=== PATIENT | female | born 1985 | race Caucasian/White ===

== ENCOUNTER 2017-04-21 18:29 | Emergency (ER) | payer MEDICAID ==
--- NOTE | 2017-04-21 18:58 | EDPHY ---
H & P Stated Complaint: SI;no plan;superficial cuts both arms,hx cutting Source: Patient Exam Limitations: No limitations - Personal History LMP (Females 10-55): 1-7 Days Ago Current Tetanus Diphtheria and Acellular Pertussis (TDAP): Yes Tetanus Vaccine Date: 4 yrs ago - Medical/Surgical History Hx Asthma: No Hx Chronic Respiratory Disease: No Hx Diabetes: No Hx Cardiac Disease: No Hx Renal Disease: No Hx Cirrhosis: No Hx Alcoholism: No Hx HIV/AIDS: No Hx Splenectomy or Spleen Trauma: No Other PMH: Medical- Bipolar 1,. Surgical- hernia repair as baby, - Social History Smoking Status: Current every day smoker Time Seen by Provider: 04/21/17 18:56 HPI/ROS: HPI: This is a 31-year-old female who presents with Chief Complaint: SI;no plan;superficial cuts both arms,hx cutting Location:psych Quality: Suicidal ideation Duration: 1 week Signs and Symptoms: no auditory and visual command hallucinations, + suicidal ideation with a plan, no homicidal ideation, paranoid Timing: Worsening Severity: Severe Context: History of bipolar 1 disorder taking Zyprexa, Paxil, Restoril, history of cutting and self-harm but no episodes in greater than 2 years presents with recent loss of job and coworkers accusing her of stealing money. This has caused her to have anger, feelings of guilt and low self worth. She reports today she confronted her coworkers which escalated and ended in argument. She went home and started to cut herself on her face neck arms and legs with a razor blade. She wanted to caused herself self-harm because she deserves it. She does not want to live anymore. She admits to suicidal thoughts. LMP 1-7 days ago. She called her friend that she is worried about her safety and does not feel comfortable to be alone. Her friend is accompanying her today and reports that he is gravely worried about her. He has not seen her this low in long time. Tetanus booster unknown. Patient reports periods of david vu this week. Modifying Factors: Called a friend Comment: ROS: see HPI Constitutional: No fever, no chills, no weight loss Eyes: No blurred vision Respiratory: No shortness of breath, no cough Cardiovascular: No chest pain Gastrointestinal: No nausea, no vomiting, no diarrhea Genitourinary: No dysuria Extremities: No myalgias Neurologic: No weakness, no numbness Skin: No rashes Hematologic: No bruising, no bleeding MEDICAL/SURGICAL/SOCIAL HISTORY: Medical- Bipolar 1 Surgical- hernia repair as baby Social history: Formally employed. CONSTITUTIONAL: Polite, tidy, adult white female, awake and alert, no obvious distress HEENT: Atraumatic and normocephalic, PERRL, EOMI. Tympanic membranes clear. Oropharynx clear, no exudate and moist pink mucosa. Airway patent. No lymphadenopathy. No meningismus. Cardiovascular: Normal S1/S2, regular rate, regular rhythm, without murmur rub or gallop. PULMONARY/CHEST: Symmetrical and nontender. Clear to auscultation bilaterally. Good air movement. No accessory muscle usage. ABDOMEN: Soft, nondistended, nontender, no rebound, no guarding, no peritoneal signs, no masses or organomegaly. No CVAT. EXTREMITIES: 2/2 pulses, strength 5/5, no deformities, no clubbing, no cyanosis or edema. NEUROLOGICAL: no focal neuro deficits. GCS 15. SKIN: Warm and dry, no erythema. no rash. Good capillary refill. Multiple piercings and tattoos noted. PSYCH: Poor eye contact, no flight of ideas, organized thought process, good insight and judgment, no auditory and visual command hallucinations, + suicidal ideation with a plan, no homicidal ideation, paranoid ([place]) Constitutional: Initial Vital Signs Temperature (C) 36.7 C 04/21/17 18:40 Heart Rate 94 04/21/17 18:40 Respiratory Rate 16 04/21/17 18:40 Blood Pressure 113/77 04/21/17 18:40 O2 Sat (%) 97 04/21/17 18:40 O2 Delivery Mode Room Air Allergies/Adverse Reactions: haloperidol [Haloperidol] Allergy (Mild, Verified 04/21/17 18:39) Rash lorazepam [Lorazepam] Allergy (Mild, Verified 04/21/17 18:39) Rash lurasidone HCl [From Latuda] Allergy (Verified 04/21/17 18:39) Home Medications: Medication Instructions Recorded OLANZapine [Zyprexa] 15 mg PO HS 12/19/15 PARoxetine HCL [Paxil 10mg (*)] 15 mg PO HS 12/19/15 Temazepam [Restoril 15 MG (*)] 15 mg PO 04/21/17 Medical Decision Making ED Course/Re-evaluation: Placed on M1 thomas upon arrival. Patient is calm and cooperative and not requiring interventions at this time. Labs and UDS ordered. Patient would benefit from inpatient psychiatric treatment. Tetanus booster given. Wounds washed with mild soap and water and bacitracin applied. 2039: Reviewed labs and UDS; positive for benzodiazepine; medically clear for mental health evaluation Midnight: End of shift. Signed out to Dr. Garrett pending mental health evaluation and final disposition. This patient was seen under the supervision of my secondary supervising physician. I evaluated care for this patient independently. Patient's presentation, labs/imaging, treatment and plan of care were discussed with secondary supervising physician. (Dominique Tuttle) 12:30 a.m.- The patient was evaluated by the mental health worker. She does have a history of bipolar 1 with psychotic features and has been hospitalized previously for suicidal ideation. Now, the patient has no active plan for suicide and is able to contract for safety. She is here with her roommate and friend who can help locking up any sharp razors or knives and her psych medications. The patient does not feel ready to discharge home and it seems crisis stabilization unit may be better option for her. The mental health team will begin to look for placement for her at a CSU. 6:50 a.m.- The patient remained stable throughout my shift, sleeping for most of it, she continues to await placement. The case will be signed out to the oncoming provider Dr. Marquez. (Aura Garrett) 7am: I assumed care at shift change. h/o bipolar disorder with psychotic features, on M1 hold for SI and cutting behavior. Awaiting placement in CSU. Sleeping comfortably. Accepted to a CSU. EMTALA completed. (Idalia Marquez) Differential Diagnosis: Differential diagnosis includes but is not limited to situational functional depression, worsening severe depression with psychosis, suicidal ideation, self- harm. (Dominique Tuttle) - Data Points Laboratory Results: Laboratory Results 04/21/17 19:50 04/21/17 19:50 Medications Given: Discontinued Medications Diphtheria/Tetanus/Acell Pertussis (Boostrix) 0.5 ml IM .ONCE ONE Stop: 04/21/17 20:28 Last Admin: 12/04/17 21:17 Dose: 0.5 ml Olanzapine (Zyprexa Zydis) 20 mg PO EDNOW ONE Stop: 04/22/17 00:49 Last Admin: 04/22/17 01:04 Dose: 20 mg Paroxetine HCl (Paxil) 15 mg PO EDNOW ONE Stop: 04/22/17 00:58 Last Admin: 04/22/17 01:26 Dose: 15 mg Temazepam (Restoril) 15 mg PO EDNOW ONE Stop: 04/22/17 00:49 Last Admin: 04/22/17 01:04 Dose: 15 mg Departure - Departure Disposition: Other Psych, Not [place] Clinical Impression: Abrasion, multiple sites, Bipolar 1 disorder with moderate sergei, Deliberate self-cutting Referrals: NONE *PRIMARY CARE P,. [Primary Care Provider] - As per Instructions
[2017-04-21 20:02] LABS: ANION GAP 16 mEq/L (8-16); CALCIUM 9.8 mg/dL (8.5-10.4); CARBON DIOXIDE 15 mEq/l (22-31); CHLORIDE 111 mEq/L (97-110); CREATININE 0.7 mg/dL (0.6-1.0); ETHANOL SERUM < 10 mg/dL (0-10); GLOMERULAR FILTRATION RATE > 60; GLUCOSE 94 mg/dL (70-100); SODIUM 142 mEq/L (134-144)
[2017-04-21 20:10] LABS: % IMMATURE GRANULYOCYTES 0.4 % (0.0-1.1); ABSOLUTE IMMATURE GRANULOCYTES 0.06 10^3/uL (0.00-0.10); ADD DIFF? NO; ADD MORPH? NO; ADD SCAN? NO; ATYPICAL LYMPHOCYTE FLAG 0 (0-99); FRAGMENT RBC FLAG 0 (0-99); HEMATOCRIT 43.6 % (38.0-47.0); HEMOGLOBIN 14.7 g/dL (12.6-16.3); LEFT SHIFT FLG 0 (0-99); LIPEMIA HEMOLYSIS FLAG 80 (0-99); MEAN CELL HEMOGLOBIN 29.3 pg (27.9-34.1); MEAN CELL HEMOGLOBIN CONCENTR. 33.7 g/dL (32.4-36.7); MEAN PLATELET VOLUME 9.5 fL (8.7-11.7); PLATELET CLUMPS FLAG 0 (0-99); PLATELET COUNT 295 10^3/uL (150-400); RED BLOOD CELL COUNT 5.01 10^6/uL (4.18-5.33); RED CELL DISTRIBUTION WIDTH 12.8 % (11.5-15.2)
[2017-04-21] MEDS ORDERED: TDAP ADULT 0.5 ML INJ (BOOSTRIX) IM ONE (20:27)
[2017-04-21 21:08] LABS: ANION GAP 12 mEq/L (8-16); CALCIUM 9.7 mg/dL (8.5-10.4); CARBON DIOXIDE 20 mEq/l (22-31); CHLORIDE 106 mEq/L (97-110); CREATININE 0.7 mg/dL (0.6-1.0); ETHANOL SERUM < 10 mg/dL (0-10); GLOMERULAR FILTRATION RATE > 60; GLUCOSE 90 mg/dL (70-100); POTASSIUM 3.8 mEq/L (3.5-5.2); SODIUM 138 mEq/L (134-144)
[2017-04-22] MEDS ORDERED: TEMAZEPAM 15 MG CAP PO ONE (00:48)
[2017-04-22] MEDS ORDERED: OLANZapine DISINTEGR 10 MG TAB PO ONE (00:48)
[2017-04-22] MEDS ORDERED: PARoxetine HCL 10 MG TAB PO ONE (00:57)
[2017-04-22 07:34] LABS: COLOR YELLOW; LEUKOCYTE ESTERASE,URINE NEGATIVE (NEGATIVE); NITRITE,URINE NEGATIVE (NEGATIVE)
[2017-04-22 08:45] VITALS: RESP 18; TEMP 97.9
[2017-04-22] MEDS ORDERED: PARoxetine HCL 10 MG TAB PO SCH (09:00)
[2017-04-22 10:45] VITALS: BP 115/62; PULSE 82; O2SAT 95
== END 2017-04-22 10:45 ==
DX: T14.8XXA Other injury of unspecified body region, initial encounter (principal); F31.12 Bipolar disorder, current episode manic without psychotic features, moderate; F17.200 Nicotine dependence, unspecified, uncomplicated; Z91.5 Personal history of self-harm; Z23 Encounter for immunization; W45.8XXA Other foreign body or object entering through skin, initial encounter
CPT/HCPCS: 80305; G0480

== ENCOUNTER 2018-01-22 22:03 | Emergency (ER) | payer MEDICAID ==
[2018-01-22 22:19] LABS: PLATELET COUNT 306 10^3/uL (150-400)
--- NOTE | 2018-01-22 22:33 | EDPHY ---
H & P - Personal History Tetanus Vaccine Date: 4 yrs ago - Medical/Surgical History Hx Asthma: No Hx Chronic Respiratory Disease: No Hx Diabetes: No Hx Cardiac Disease: No Hx Renal Disease: No Hx Cirrhosis: No Hx Alcoholism: No Hx HIV/AIDS: No Hx Splenectomy or Spleen Trauma: No Other PMH: Medical- Bipolar 1,. Surgical- hernia repair as baby, - Social History Smoking Status: Current every day smoker Time Seen by Provider: 01/22/18 22:09 Constitutional: Initial Vital Signs Temperature (C) 36.9 C 01/22/18 22:05 Heart Rate 85 01/22/18 22:05 Respiratory Rate 16 01/22/18 22:05 Blood Pressure 117/69 01/22/18 22:05 O2 Sat (%) 96 01/22/18 22:05 O2 Delivery Mode Room Air Allergies/Adverse Reactions: haloperidol [Haloperidol] Allergy (Mild, Verified 04/21/17 18:39) Rash lorazepam [Lorazepam] Allergy (Mild, Verified 04/21/17 18:39) Rash lurasidone HCl [From Latuda] Allergy (Verified 04/21/17 18:39) Home Medications: Medication Instructions Recorded OLANZapine [Zyprexa] 15 mg PO HS 12/19/15 PARoxetine HCL [Paxil 10mg (*)] 15 mg PO HS 12/19/15 Temazepam [Restoril 15 MG (*)] 15 mg PO 04/21/17 Acyclovir 01/22/18 Dooms Aspartate 01/22/18 Medical Decision Making ED Course/Re-evaluation: 6:40 a.m.- The patient has been stable overnight. She did received temazepam in a nicotine patch by me. She was able to sleep. She is medically cleared and awaiting mental health evaluation. The case will be signed out to the oncoming provider at 7:00 a.m.. (Aura Garrett) CHIEF COMPLAINT: Suicidal ideation HISTORY OF PRESENT ILLNESS: This patient is a 23 y/o female with history of depression and several prior suicide attempts arriving via EMS who presents with suicidal ideation. She has tried multiple antidepressant medications but none have worked well for her. She began taking Paxil 5 days ago, has not noted improvement. Today, she took several unknown pills with suicidal intent. Her roommate saw her and she did not swallow the pills, but spat them out when they began melting in her mouth. She denies any other substance co-ingestion. Denies homicidal ideation. Denies recent trauma or illness. She arrives voluntarily and is not on a mental health hold. REVIEW OF SYSTEMS: A comprehensive 10 system review of systems is otherwise negative aside from elements mentioned in the history of present illness and medical decision making. PHYSICAL EXAM: HR, BP, O2 Sat, RR. Temp noted General Appearance: Alert, well hydrated, appropriate, and non-toxic appearing. Head: Atraumatic without scalp tenderness or obvious injury Eyes: Pupils equal, round, reactive to light and accommodation, EOMI, no trauma , no injection. Throat: Mucus membranes moist. Neck: Supple, nontender. Respiratory: No retractions, no distress, no wheezes, and no accessory muscle use. Lungs are clear to auscultation bilaterally. Cardiovascular: Regular rate and rhythm, no murmurs, rubs, or gallops. Good capillary refill all extremities. Gastrointestinal: Abdomen is soft, nontender, non-distended, no masses, no rebound, no guarding, no peritoneal signs. Musculoskeletal: Normal active ROM of all extremities, atraumatic. Neurological: Alert, appropriate, and interactive. Nonfocal neuro exam. Skin: No rashes, good turgor, no nodules on palpation. Past medical history: Bipolar I Past surgical history: Noncontributory Family history: Noncontributory Social history: Single. Lives in [place]. Does not abuse tobacco, drugs, or alcohol. DIFFERENTIAL DIAGNOSIS: Includes but not limited to major depression, bipolar I, bipolar II, substance abuse, alcohol intoxication. MEDICAL DECISION MAKIN32 y/o female presents voluntarily for mental health evaluation after suicidal ideation and nearly taking several unknown pills earlier this evening. Plan for routine laboratory studies including CBC, chemistries, tox screen, BHCG, EtOH, acetaminophen and salicylate levels. 22:30 Placed patient on detainer due to suicidal ideation. Toxicology positive for EtOH, benzodiazepines. No suspected overdose of acetaminophen, salicylates. 23:00 Care of this patient transferred to Dr. Garrett at shift change. (Jose Cooper) Other Provider: I assumed care of the patient at 0700. 9:30 a.m.: Patient is continuing to await psychiatric evaluation. She is calm and cooperative in the emergency department. 10:00 a.m.: The patient was evaluated by the psychiatric team. She currently contracts for safety and denies suicidal ideation. She reports that she simply was having a impulsive yesterday. The patient is accompanied by her long time roommate Servando who also feels that the patient is safe. He was the one that contacted 911 during the yesterday yesterday. The patient will be discharged home. She does not meet criteria for 72 hr mental health hold. She was given customary aftercare instructions and return precautions. (Angel Meléndez) - Data Points Laboratory Results: Laboratory Results 01/22/18 22:00 01/22/18 22:00 Medications Given: Discontinued Medications Nicotine (Nicoderm Cq) 21 mg TD EDNOW ONE Stop: 01/23/18 00:59 Last Admin: 01/23/18 01:02 Dose: 21 mg Nicotine Polacrilex (Nicorette) 2 mg B PRN PRN PRN Reason: Nicotine Withdrawal Stop: 07/22/18 00:57 Last Admin: 01/23/18 01:02 Dose: 2 mg Temazepam (Restoril) 15 mg PO EDNOW ONE Stop: 01/23/18 00:59 Last Admin: 01/23/18 01:02 Dose: 15 mg Departure - Departure Disposition: Home, Routine, Self-Care Clinical Impression: Bipolar mood disorder Condition: Good Instructions: Bipolar Disorder (ED) Additional Instructions: 1. Please follow-up with the mental health resources provided in the ED today. 2. [facility] does operate a 24/7 psychiatric crisis unit located at [address] [place] [address]. The telephone number for the 24 hour crisis center is [phone]. 3. Please return to the ED if you are feeling suicidal, having thoughts of harming yourself/others or should you feel unsafe or have worsening symptoms. Referrals: NONE *PRIMARY CARE P,. [Primary Care Provider] - As per Instructions Report Scribed for: Jose Cooper Report Scribed by: Lakeisha Harry Date of Report: 01/23/18 Time of Report: 16:41
[2018-01-23] MEDS ORDERED: NICOTINE POLACRILEX 2 MG GUM B ONE (00:48)
[2018-01-23] MEDS ORDERED: LORazepam 1 MG TAB ONE (00:48)
[2018-01-23] MEDS ORDERED: NICOTINE 21 MG/24 HR PATCH TD ONE ×2 (00:48→00:58)
[2018-01-23] MEDS ORDERED: TEMAZEPAM 15 MG CAP ONE (00:53)
[2018-01-23] MEDS ORDERED: TEMAZEPAM 15 MG CAP PO ONE (00:58)
[2018-01-23] MEDS ORDERED: NICOTINE POLACRILEX 2 MG GUM B PRN (00:58)
[2018-01-23 10:47] VITALS: BP 100/60
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
--- NOTE | 2018-01-23 13:35 | ASMTTCLDSP ---
TLC Discharge Disposition Disposition: Answers: Discharge If Answers: Yes DISCHARGED: Patient/family given suicide hotline info & SAMHSA brochure? Disposition Notes: Notes: IN CONSULTATION WITH [facility] ED PHYSICIAN, DILIA CALVERT MD, IT WAS CONCURRED THAT PT DOES NOT APPEAR TO MEET 27-65 CRITERIA REQUIRING PSYCHIATRIC HOSPITALIZATION PT DOES NOT APPEAR TO BE AN IMMINENT RISK OF HARM TO SELF/OTHERS/GRAVELY DISABLED DUE TO A MENTAL ILLNESS CONDITION. Discharge Concerns/Recommendations: Notes: PT WAS OFFERED VOLUNTARY MENTAL HEALTH ADMISSION YET PT DECLINED. PT STATED COMMITMENT OR ABILITY TO KEEP SELF SAFE, DENIED THOUGHTS OF SELF HARM OR HARM TO OTHERS. PT EXPRESSED A DESIRE TO F/U WITH HER TREATMENT PROVIDER AT [facility]. PT WAS ALSO PROVIDED WITH [facility] IF THE NEED ARISES. PT WAS GIVEN LOCAL HOTLINE INFORMATION AND SAMHSA BROCHURE AFTER AN ATTEMPT AND ENCOURAGED TO FOLLOW UP WITH [facility]. TLC MADE CONTACT WITH [facility] SINCE PT IS AN OPEN CLIENT AND INFORMED THEM OF PTS ED VISIT WITH PLAN TO CONTINUE OUTPT MENTAL HEALTH TREATMENT. PT AGREED TO SEEK A NEW THERAPIST FOR ADDITIONAL SUPPORT. Date Signed: 01/23/2018 01:34 PM Electronically Signed By:Katarzyna Middleton
== END 2018-01-23 10:53 | disposition home or self-care (01) ==
LOC: EDUNIT#
DX: F31.9 Bipolar disorder, unspecified (principal); F17.210 Nicotine dependence, cigarettes, uncomplicated
CPT/HCPCS: 80305; G0480

== ENCOUNTER 2018-01-28 17:18 | Emergency (ER) | payer MEDICAID, OTHER ==
--- NOTE | 2018-01-28 19:31 | EDPHY ---
H & P Stated Complaint: concerned about bad rxn to being on Bufalo Time Seen by Provider: 01/28/18 19:21 HPI/ROS: CHIEF COMPLAINT: Does not like lithium HISTORY OF PRESENT ILLNESS: The patient is a 32-year-old female with a history of bipolar depression who was previously on Paxil but in conjunction with her therapist decided to try changing to lithium. She is currently taking lithium 300 mg once daily. She has been on this for 2 weeks. She states that she does not like the way it makes her feel and she would like to switch back to Paxil. She states that she is feeling increasingly depressed but not suicidal. She is having insomnia, increased moodiness and weight loss. No fevers or illness. No GI symptoms. She came here for advice on how to switch back to Paxil. Severity: Moderate Modifying factors: None REVIEW OF SYSTEMS: Constitutional: denies: chills, fever, recent illness, recent injury EENTM: denies: blurred vision, double vision, nose congestion Respiratory: denies: cough, shortness of breath Cardiac: denies: chest pain, irregular heart rate, lightheadedness, palpitations Gastrointestinal/Abdominal: denies: abdominal pain, diarrhea, nausea, vomiting, blood streaked stools Genitourinary: denies: dysuria, frequency, hematuria, pain Musculoskeletal: denies: joint pain, muscle pain Skin: denies: lesions, rash, jaundice, bruising Neurological: denies: headache, numbness, paresthesia, tingling, dizziness, weakness Hematologic/Lymphatic: denies: blood clots, easy bleeding, easy bruising Immunologic/allergic: denies: HIV/AIDS, transplant 10 systems reviewed and negative except as noted EXAM: GENERAL: Well-appearing, overweight and in no acute distress. HEAD: Atraumatic, normocephalic. EYES: Pupils equal round and reactive to light, extraocular movements intact, sclera anicteric, conjunctiva are normal. ENT: TMs normal, nares patent, oropharynx clear without exudates. Moist mucous membranes. NECK: Normal range of motion, supple without lymphadenopathy or JVD. LUNGS: Breath sounds clear to auscultation bilaterally and equal. No wheezes rales or rhonchi. HEART: Regular rate and rhythm without murmurs, rubs or gallops. ABDOMEN: Soft, nontender, normoactive bowel sounds. No guarding, no rebound. No masses appreciated. BACK: No CVA tenderness, no spinal tenderness, step-offs or deformities EXTREMITIES: Normal range of motion, no pitting or edema. No clubbing or cyanosis. NEUROLOGICAL: Cranial nerves II through XII grossly intact. Normal speech, normal gait. 5/5 strength, normal movement in all extremities, normal sensation , normal reflexes PSYCH: Normal mood, normal affect. SKIN: Multiple tattoos is over entire body including face, Warm, dry, normal turgor, no visible rashes or lesions. Source: Patient Exam Limitations: No limitations - Personal History LMP (Females 10-55): 22-28 Days Ago Tetanus Vaccine Date: 4 yrs ago - Medical/Surgical History Hx Asthma: No Hx Chronic Respiratory Disease: No Hx Diabetes: No Hx Cardiac Disease: No Hx Renal Disease: No Hx Cirrhosis: No Hx Alcoholism: No Hx HIV/AIDS: No Hx Splenectomy or Spleen Trauma: No Other PMH: Medical- Bipolar 1,. Surgical- hernia repair as baby, - Family History Significant Family History: No pertinent family hx - Social History Smoking Status: Current every day smoker Alcohol Use: Sober Drug Use: None Constitutional: Initial Vital Signs Temperature (C) 36.7 C 01/28/18 17:29 Heart Rate 92 01/28/18 17:29 Respiratory Rate 18 01/28/18 17:29 Blood Pressure 107/70 01/28/18 17:29 O2 Sat (%) 96 01/28/18 17:29 O2 Delivery Mode Room Air Allergies/Adverse Reactions: haloperidol [Haloperidol] Allergy (Mild, Verified 01/28/18 17:29) Rash lorazepam [Lorazepam] Allergy (Mild, Verified 01/28/18 17:29) Rash lurasidone HCl [From Latuda] Allergy (Verified 01/28/18 17:29) Home Medications: Medication Instructions Recorded OLANZapine [Zyprexa] 15 mg PO HS 12/19/15 PARoxetine HCL [Paxil 10mg (*)] 15 mg PO HS 12/19/15 Temazepam [Restoril 15 MG (*)] 15 mg PO 04/21/17 Acyclovir 01/22/18 Bufalo Aspartate 01/22/18 Medical Decision Making ED Course/Re-evaluation: 7:30 p.m. We did reach out to mental health but they are unable to have a psychiatrist evaluate her medications at this time. 8:20 p.m. we discussed the test results. The patient's lithium level is low. She is likely feeling the symptoms because she was essentially not on any medications. She agreed with increasing her dose and following up with her psychiatrist as scheduled on Friday. I discussed the case with pharmacy. They suggest increasing by 300 mg intervals. I will give the patient an extra dose tonight and then extra pill to take tomorrow for total 600 mg and she will follow up with her psychiatrist on Friday. Differential Diagnosis: Partial list of the Differential diagnosis considered include but were not limited to; medication reaction, depression, anxiety and although unlikely based on the history and physical exam, I also considered suicidality, infection. I discussed these differential diagnoses and the plan with the patient as well as the usual and expected course. The patient understands that the diagnosis is provisional and that in medicine we are not always correct and that further workup is often warranted. Usual and customary warnings were given. All of the patient's questions were answered. The patient was instructed to return to the emergency department should the symptoms at all worsen or return, otherwise to followup with the physician as we discussed. - Data Points Laboratory Results: Laboratory Results 01/28/18 19:45 01/28/18 19:45 01/28/18 01/28/18 01/28/18 19:45 19:45 19:45 WBC 11.70 10^3/uL H 10^3/uL (3.80-9.50) RBC 4.95 10^6/uL 10^6/uL (4.18-5.33) Hgb 14.7 g/dL g/dL (12.6-16.3) Hct 43.2 % % (38.0-47.0) MCV 87.3 fL fL (81.5-99.8) MCH 29.7 pg pg (27.9-34.1) MCHC 34.0 g/dL g/dL (32.4-36.7) RDW 13.2 % % (11.5-15.2) Plt Count 317 10^3/uL 10^3/uL (150-400) MPV 9.4 fL fL (8.7-11.7) Neut % (Auto) 57.5 % % (39.3-74.2) Lymph % (Auto) 34.3 % % (15.0-45.0) [place] % (Auto) 5.0 % % (4.5-13.0) Eos % (Auto) 2.2 % % (0.6-7.6) Baso % (Auto) 0.7 % % (0.3-1.7) Nucleat RBC Rel Count 0.0 % % (0.0-0.2) Absolute Neuts (auto) 6.74 10^3/uL H 10^3/uL (1.70-6.50) Absolute Lymphs (auto) 4.01 10^3/uL H 10^3/uL (1.00-3.00) Absolute Monos (auto) 0.58 10^3/uL 10^3/uL (0.30-0.80) Absolute Eos (auto) 0.26 10^3/uL 10^3/uL (0.03-0.40) Absolute Basos (auto) 0.08 10^3/uL 10^3/uL (0.02-0.10) Absolute Nucleated RBC 0.00 10^3/uL 10^3/uL (0-0.01) Immature Gran % 0.3 % % (0.0-1.1) Immature Gran # 0.03 10^3/uL 10^3/uL (0.00-0.10) Sodium 137 mEq/L mEq/L (135-145) Potassium 4.1 mEq/L mEq/L (3.3-5.0) Chloride 106 mEq/L mEq/L (97-110) Carbon Dioxide 25 mEq/l mEq/l (22-31) Anion Gap 6 mEq/L L mEq/L (8-16) BUN 6 mg/dL L mg/dL (7-23) Creatinine 0.8 mg/dL mg/dL (0.6-1.0) Estimated GFR > 60 Glucose 88 mg/dL mg/dL (70-100) Calcium 9.7 mg/dL mg/dL (8.5-10.4) Beta HCG, Qual NEGATIVE [place] 0.2 mEq/L L mEq/L (0.6-1.2) Medications Given: Discontinued Medications Bufalo Carbonate (Bufalo Carbonate) 300 mg PO DAILY ONE Stop: 01/28/18 20:20 Last Admin: 01/28/18 20:45 Dose: 300 mg Departure - Departure Disposition: Home, Routine, Self-Care Clinical Impression: Depression Qualifiers: Depression Type: major depressive disorder Major depression recurrence: recurrent Active/Remission status: currently active Major depression episode severity: moderate Qualified Code(s): F33.1 - Major depressive disorder, recurrent, moderate Condition: Fair Instructions: Bufalo (By mouth) Additional Instructions: Take 600 mg of lithium tomorrow and then follow up with your psychiatrist on Friday as planned. Referrals: Nancy Perry PAC [Primary Care Provider] - As per Instructions
[2018-01-28 19:57] LABS: PLATELET COUNT 317 10^3/uL (150-400)
[2018-01-28] MEDS ORDERED: LITHIUM CARBONATE 300 MG TAB PO ONE (20:19)
[2018-01-28 20:52] VITALS: BP 104/66
== END 2018-01-28 20:53 | disposition home or self-care (01) ==
DX: F31.30 Bipolar disorder, current episode depressed, mild or moderate severity, unspecified (principal); Z51.81 Encounter for therapeutic drug level monitoring